=== PATIENT | female | born 2000 | race Hispanic/Latino ===

== ENCOUNTER 2022-11-26 15:42 | Emergency (ER) | payer BC, MEDICAID ==
[~2022-11-26] VITALS: Ht 154.9 cm; Wt 79.4 kg
[2022-11-26 18:20] LABS: BASOPHILS % (AUTO) 0.4 % (0.0-5.0); EOSINOPHILS % (AUTO) 1.1 % (0.0-8.0); LYMPHOCYTES % (AUTO) 28.8 % (21.0-51.0); MEAN CORPUSCULAR HEMOGLOBIN 29.8 pg (27.0-33.0); MEAN CORPUSCULAR HGB CONC 33.6 g/dL (32.0-36.0); MEAN CORPUSCULAR VOLUME 88.6 fL (79-99); MONOCYTES % (AUTO) 6.5 % (3.0-13.0); NEUTROPHILS % (AUTO) 62.6 % (40.0-77.0); PLATELET COUNT (AUTO) 334 K/uL (130-400); RED CELL DISTRIBUTION WIDTH 12.2 % (11.0-15.5); WHITE BLOOD COUNT (AUTO) 8.2 K/uL (4.8-10.8)
[2022-11-26 18:31] LABS: CREATININE 0.6 mg/dL (0.5-1.5); POTASSIUM 4.1 mmol/L (3.5-5.1)
[2022-11-26 18:35] LABS: ALBUMIN 4.2 g/dL (3.5-5.0); TOTAL PROTEIN, SERUM 8.3 g/dL (6.0-8.3)
[2022-11-26 18:51] LABS: APPEARANCE,URINE CLOUDY (CLEAR); BILIRUBIN,URINE NEGATIVE (NEGATIVE); COLOR,URINE LIGHT-YELLOW (YELLOW); GLUCOSE, URINE (UA) NEGATIVE (NEGATIVE); KETONES,URINE NEGATIVE (NEGATIVE); LEUKOCYTE ESTERASE ,URINE 250 Leu/uL (NEGATIVE); NITRATE,URINE NEGATIVE (NEGATIVE); OCCULT BLOOD,URINE MODERATE (NEGATIVE); PROTEIN,URINE NEGATIVE (NEGATIVE); UROBILINOGEN,URINE 0.2 mg/dL (0.2-1.0)
[2022-11-26 19:02] LABS: HCG,QUALITATIVE URINE NEGATIVE (NEGATIVE)
[2022-11-26 19:20] LABS: BACTERIA,URINE FEW /HPF (None Seen); MUCUS,URINE RARE LPF (None Seen); OTHER CASTS, URINE 1 /LPF (None Seen); SQUAMOUS EPITHELIAL CELL,UR FEW /HPF (0-2); YEAST,URINE BUDDING FEW /HPF (None Seen)
[2022-11-26] MEDS ORDERED: NAPR-1023 PO (19:48)
[2022-11-26 19:59] VITALS: BP 124/80
== END 2022-11-26 20:03 | disposition home or self-care (01) ==
LOC: EDH 15:42
DX: N94.6 Dysmenorrhea, unspecified (principal); N92.0 Excessive and frequent menstruation with regular cycle; F17.200 Nicotine dependence, unspecified, uncomplicated
CPT/HCPCS: 36415; 76856; 80053; 81001; 81025; 83690; 85025; 87088

== ENCOUNTER 2023-09-20 15:39 | Emergency (ER) | payer MEDICAID, OTHER ==
[~2023-09-20] VITALS: Ht 154.9 cm; Wt 85.3 kg
[~2023-09-20 15:39] MED LIST: NAPR-1023 PO
[2023-09-20] MEDS: LIDOCAINE HCL 1% 20 ML VIAL INJ SCH (17:21)
[2023-09-20] MEDS: ACETAMINOPHEN 500 MG TABLET PO ONE (17:22)
[2023-09-20] MEDS: CLINDAMYCIN 150 MG CAP PO ONE (17:22)
[2023-09-20 17:37] VITALS: BP 125/87; PULSE 72; RESP 20; O2SAT 97
[2023-09-20] MEDS ORDERED: IBUP-2077 PO (17:37)
[2023-09-20] MEDS ORDERED: CLIN-141 PO (17:37)
== END 2023-09-20 18:57 | disposition home or self-care (01) ==
LOC: EDH 15:39
DX: L02.414 Cutaneous abscess of left upper limb (principal); E66.9 Obesity, unspecified
CPT/HCPCS: 10060; 87071; 87205